=== PATIENT | female | born 1985 | race Caucasian/White ===

== ENCOUNTER 2018-08-15 11:02 | Inpatient (IN) | payer OTHER ==
[~2018-08-15] VITALS: Ht 157.5 cm; Wt 77.8 kg
[~2018-08-15 11:02] MED LIST: PHENYLephrine (100 MCG/ML) 10ML SYG ONE
[2018-08-15 11:21] VITALS: Ht 157.5 cm; Wt 77.8 kg
[2018-08-15 11:22] VITALS: BP 118/73; PULSE 88; RESP 16
[2018-08-15] MEDS ORDERED: MISOPROSTOL 200 MCG TAB PR PRN ×2 (11:30→17:00)
[2018-08-15] MEDS ORDERED: OXYTOCIN 30 UNITS/LR 500 ML IV SCH ×2 (11:30→16:35)
[2018-08-15] MEDS ORDERED: METHYLERGONOVINE 0.2 MG INJ IM PRN ×2 (11:30→17:00)
[2018-08-15] MEDS ORDERED: OXYTOCIN 30 UNITS/LR 500 ML IV PRN ×2 (11:30→17:00)
[2018-08-15] MEDS ORDERED: CEFAZOLIN 2 GM/50 ML (PMX) 50 ML IVPB SCH (11:30)
[2018-08-15] MEDS ORDERED: CARBOPROST 250 MCG INJ IM PRN ×2 (11:30→17:00)
[2018-08-15] MEDS: LACTATED RINGER'S 1,000 ML IV SCH ×2 (11:31→19:16)
--- NOTE | 2018-08-15 12:02 | HP ---
Date/Time of Note Date/Time of Note DATE: 08/15/18 TIME: 11:57 OB - History Hx of Present Chief Complaint: scheduled Estimated Due Date: Aug 22, 2018 : 2 Para: 1 Spontaneous : 0 Therapeutic : 0 Care: Good Care Ultrasounds: Normal mid trimester US Obstetrical Complications: None Medical Complications: None Past Family/Social History * Past Medical, Surgical, Family and Obstetric Histories reviewed from chart. GBS Status: Negative OB Admission Exam Vital Signs Vital Signs Vital Signs Date Temp Pulse Resp B/P (MAP) Pulse Ox O2 O2 Flow FiO2 Time Delivery Rate 08/15/18 98.1 88 16 118/73 11:22 (88) Physical Exam HEENT: WNL Heart: Rhythm Normal Lungs: Clear, Equal Abdomen: WNL Extremities: Normal Reflexes: Normal Heart Rate: 120's Accelerations: Accelerations Present Decelerations: No Decelerations Varibility: Moderate Last 72 hours Lab Results CBC & BMP 08/15/18 11:38 OB Assessment/Plan Reason for admission: section Plan: Section JESSA ALVES MD Aug 15, 2018 12:02
[2018-08-15] MEDS ORDERED: morphine SULFATE/PF (10 MG/10 ML) INJ ONE (12:38)
--- NOTE | 2018-08-15 12:38 | PREAC ---
Date/Time of Note Date/Time of Note DATE: 08/15/18 TIME: 12:37 Anesthesia Eval and Record Evaluation Time Pre-Procedure Interview DATE: 08/15/18 TIME: 12:37 Age 33 Sex female NPO: 8 hrs Preoperative diagnosis Repeat Planned procedure Past Medical History Past Medical History: Includes : : (2), Para: (1), Gestational age: (41) Surgery & Anesthesia Issues No known issue Meds Anticoagulation: No Beta Tay within 24 hr: No Reason Beta Tay not given: Pt. not on B-Tay Current Medications Lactated Ringer's 1,000 ml @ 125 mls/hr Q8H IV Last administered on 08/15/18at 11:31; Admin Dose 125 MLS/HR; Start 08/15/18 at 11:16 Cefazolin Sodium/ Dextrose 50 ml @ 100 mls/hr ONCE IVPB ; Start 08/15/18 at 11:30 Oxytocin/Lactated Ringer's 500 ml @ 125 mls/hr POST IV ; Start 08/15/18 at 11:30 Oxytocin/Lactated Ringer's 500 ml @ 0 mls/hr ONCE PRN IV VAGINAL BLEEDING; Start 08/15/18 at 11:30 Methylergonovine Maleate (Methergine) 0.2 mg ONCE PRN IM VAGINAL BLEEDING; Start 08/15/18 at 11:30 Carboprost Tromethamine (Hemabate) 250 mcg ONCE PRN IM VAGINAL BLEEDING; Start 08/15/18 at 11:30 Misoprostol (Cytotec) 1,000 mcg ONCE PRN [place] VAGINAL BLEEDING; Start 08/15/18 at 11:30 Meds reviewed: Yes Allergies Coded Allergies: No Known Allergies (Unverified Allergy, Unknown, 05/24/15) Allergies Reviewed: Yes Labs/Studies Labs Reviewed: Reviewed by anesthesiologist Result Diagram: 08/15/18 1138 Laboratory Tests 08/15/18 11:38 test: Positive Studies: ECG (n/a), CXR (n/a) Pre-procedure Exam Last vitals Vital Signs Date Temp Pulse Resp B/P (MAP) Pulse Ox O2 O2 Flow FiO2 Time Delivery Rate 08/15/18 98.1 88 16 118/73 11:22 (88) Airway: Adequate mouth opening, Adequate thyromental dist Mallampati: Mallampati II Teeth: Normal Lung: Normal Heart: Normal ASA Physical Status ASA physical status: 2 Emergency: None Planned Anesthetic Neuraxial: Spinal Planned Pain Management Sub-arachniod narcotics, Parenteral pain med Pre-operative Attestations Prior to commencing anesthesia and surgery, the patient was re-evaluated, there was verification of: *The patient's identity *The results of appropriate recent lab work and preoperative vital signs *The above evaluation not changing prior to induction *Anesthetic plan, risk benefits, alternative and complications discussed with patient/family; questions answered; patient/family understands, accepts and wishes to proceed. YUNI NAVARRO MD Aug 15, 2018 12:38
[2018-08-15] MEDS ORDERED: OXYTOCIN 10 UNIT INJ ONE (12:39)
[2018-08-15] MEDS ORDERED: ONDANSETRON 4 MG INJ ONE (12:51)
[2018-08-15] MEDS ORDERED: KETOROLAC 30 MG INJ ONE (12:51)
[2018-08-15] MEDS ORDERED: DEXAMETHASONE 4 MG/ML 1 ML INJ ONE (12:51)
[2018-08-15] MEDS ORDERED: METOCLOPRAMIDE 10 MG INJ ONE (12:51)
[2018-08-15] MEDS ORDERED: morphine 2 MG INJ IV PRN (13:30)
[2018-08-15] MEDS ORDERED: ONDANSETRON 4 MG INJ IV PRN ×2 (13:30)
[2018-08-15] MEDS ORDERED: FENTAnyl 50 MCG/ML VIAL IV PRN ×2 (13:30)
[2018-08-15] MEDS ORDERED: EPHEDrine SULFATE 50 MG/5 ML SYG IV PRN (13:30)
[2018-08-15] MEDS ORDERED: NALBUPHINE HCL (10 MG/1 ML) INJ IV PRN (13:30)
[2018-08-15] MEDS ORDERED: MEPERIDINE 25 MG INJ IV PRN (13:30)
[2018-08-15] MEDS ORDERED: ALBUMIN HUMAN 5% 250 ML IV PRN (13:30)
[2018-08-15] MEDS ORDERED: NALOXONE (0.4 MG/ML) INJ IV PRN (13:30)
[2018-08-15] MEDS ORDERED: DIPHENHYDRAMINE 50 MG INJ IV PRN ×2 (13:30)
[2018-08-15] MEDS ORDERED: HYDROmorphONE 1 MG/5 ML IV SYRINGE IV PRN ×2 (13:30)
[2018-08-15] MEDS ORDERED: HYDROmorphONE 0.5 MG/0.5 ML SYG IV PRN ×2 (13:30)
[2018-08-15] MEDS ORDERED: ACETAMINOPHEN 500 MG TAB PO PRN (13:30)
[2018-08-15] MEDS ORDERED: METOCLOPRAMIDE 10 MG INJ IV PRN (13:30)
[2018-08-15] MEDS ORDERED: HYDROCODONE/APAP (5/325) TAB PO PRN (13:30)
[2018-08-15] MEDS ORDERED: OXYCODONE/ACETAMINOPHEN (5/325) TAB PO PRN ×2 (13:30→17:00)
--- NOTE | 2018-08-15 13:52 | OPR ---
Operative Report Planned Procedure Procedure date Aug 15, 2018 Procedure(s) Repeat low transverse Performed by Jessa Alves MD Juvenile Officer: JUN JACOBO M.D. Anesthesiologist: YUNI NAVARRO MD Pre-procedure diagnosis 39 weeks with previous [id number] Anesthesia Type: Wwspk8v spinal Post-Procedure Post-procedure diagnosis Same Findings Live Baby, Apgars 9 and 9 Estimated Blood Loss: other (600 ml) Specimen(s) placenta Grafts/Implant(s) none Complication(s) none Pt Condition post procedure: stable Disposition: PACU Procedure Description After spinal anesthesia had been dosed and tested, the patient was placed supine on the Operating Room table and prepped and draped in the usual sterile fashion for a section. A Pfannenstiel incision was made through the abdomen and carried down to the level of the fascia. The fascia was incised transversely and then the rectus muscle was dissected off the fascia and split bluntly in the midline. The peritoneum was the entered bluntly. The bladder flap was created and then a low segment transverse incision was made with a knife on the uterus until the amniotic fluid was encountered. The incision was widened with bandage scissors. A hand was inserted elevating the vertex and then the head delivered with assistance of fundal pressure.. The nares and oropharynx were bulb suctioned, and the remainder of the infant was delivered out of the maternal abdomen. . The cord was doubly clamped and cut, and the infant handed off to the awaiting resuscitation team who was present for delivery. The placenta was then manually extracted and the interior uterus was cleaned with a dry lap sponge. The uterus was exteriorized, and the incision of the uterus closed with a running interlocking stitch of Monocryl suture. The uterus was replaced in the maternal abdomen. The abdomen was cleared of clots. The fascia was closed with a running suture of #1 Vicryl suture meeting in the midline. The subcutaneous tissue was made hemostatic with Bovie cautery, and the skin approximated using aggie. The patient tolerated the procedure well. All sponge and instrument counts were correct. She was taken to the recovery room in stable condition. JESSA ALVES MD Aug 15, 2018 13:52
--- NOTE | 2018-08-15 14:24 | PAC ---
Date/Time of Note Date/Time of Note DATE: 08/15/18 TIME: 14:24 Post-Anesthesia Notes Post-Anesthesia Note Last documented vital signs Vital Signs Date Temp Pulse Resp B/P (MAP) Pulse Ox O2 O2 Flow FiO2 Time Delivery Rate 08/15/18 98.1 88 16 118/73 94 NC 3 L 14:22 (88) Activity: WNL Respiratory function: WNL Cardiovascular function: WNL Mental status: Baseline Pain reasonably controlled: Yes Hydration appropriate: Yes Nausea/Vomiting absent: Yes YUNI NAVARRO MD Aug 15, 2018 14:24
[2018-08-15 16:00] VITALS: BP 110/58; PULSE 77; RESP 18
[2018-08-15] MEDS ORDERED: LACTATED RINGER'S 1,000 ML IV SCH (16:35)
[2018-08-15 16:58] VITALS: BP 97/53; PULSE 75; RESP 18
[2018-08-15] MEDS ORDERED: LANOLIN HPA 1 PKT TOP PRN (17:00)
--- NOTE | 2018-08-15 18:00 | NUR ---
EOSS. PT, IS IN STABLE CONDITION FUNDUS FIRM NORMAL BLEEDING . NO COMPLAINED OF PAIN OR ANY PROBLM UNDER OBSERVATION .
[2018-08-15 19:40] VITALS: BP 101/50; PULSE 85; RESP 18
[2018-08-15] MEDS: SENNA/DOCUSATE NA (8.6MG/50MG) TAB PO SCH (21:25)
[2018-08-16 00:10] VITALS: BP 92/50; PULSE 86; RESP 19
[2018-08-16] MEDS: LACTATED RINGER'S 1,000 ML IV SCH ×3 (03:16→23:08)
[2018-08-16 04:15] VITALS: BP 92/54; PULSE 79; RESP 19
[2018-08-16] MEDS: KETOROLAC 30 MG INJ IV PRN ×2 (04:23→12:11)
--- NOTE | 2018-08-16 04:25 | NUR ---
Discussed with pt regarding benefits of early ambulation. Pt verbalized understanding and agreed to get OOB to chair. Mercedes care done. Scant lochia noted. Pt assisted OOB to a chair. Pt tolerated ambulation. Instructed pt to call nurse for assistance getting back to bed. Pt verbalized understanding of instruction. Phone within easy reach.
--- NOTE | 2018-08-16 06:55 | NUR ---
Assisted pt back to bed. No c/o dizziness. SCD applied to both legs
--- NOTE | 2018-08-16 07:05 | NUR ---
EOSS: Pt in stable condition. Pereira and IV remain in place. Tolerating PO fluids. Bonding well with baby. OOB to a chair with assist. Pt tolerated ambulation. Pain controlled with Toradol 30 mg IV.
[2018-08-16 08:30] VITALS: BP 95/55; PULSE 72; RESP 18
[2018-08-16] MEDS: SENNA/DOCUSATE NA (8.6MG/50MG) TAB PO SCH ×2 (09:55→21:33)
--- NOTE | 2018-08-16 10:03 | QN ---
Documentation Comment No complaint Afebrile VSS Abdomen soft ND POD #1 Stable Ambulate Advance diet. JESSA ALVES MD Aug 16, 2018 10:03
--- NOTE | 2018-08-16 13:30 | NUR ---
LR IV fluids discontinued and IV saline locked. Pereira removed from patient. Patient tolerated well. Patient up to void post removal.
[2018-08-16] MEDS: IBUPROFEN 800 MG TAB PO SCH ×2 (14:00→21:34)
[2018-08-16] MEDS: OXYCODONE/ACETAMINOPHEN (5/325) TAB PO PRN (17:53)
--- NOTE | 2018-08-16 17:53 | NUR ---
Medicated PRN for pain score 6 with Percocet. Will reassess effectiveness in 1/2 hour
--- NOTE | 2018-08-16 18:00 | NUR ---
IV catheter removed from L wrist. Catheter tip intact. Patient tolerated well
--- NOTE | 2018-08-16 19:33 | NUR ---
EOSS CONDITION IS STABLE. HAS VOIDED ONCE. IV FLUIDS DISCONTINUED. UP AD LES IN ROOM. NO EXCESSIVE BLEEDING. BONDING WELL WITH MOM AND BABY
[2018-08-16 20:15] VITALS: BP 98/66; PULSE 84; RESP 17
[2018-08-17 04:50] VITALS: BP 118/57; PULSE 71; RESP 18
[2018-08-17] MEDS: LACTATED RINGER'S 1,000 ML IV SCH (05:11)
[2018-08-17] MEDS: IBUPROFEN 800 MG TAB PO SCH ×3 (05:32→22:23)
--- NOTE | 2018-08-17 06:12 | NUR ---
E.O.S.S. Patient in stable condition. VSS and systemic sounds wnl. Feeding baby every 2-3 hours or at least 8-12 hours per day. Bonding well with baby.
[2018-08-17 08:15] VITALS: BP 93/66; PULSE 86; RESP 18
[2018-08-17] MEDS: SENNA/DOCUSATE NA (8.6MG/50MG) TAB PO SCH ×2 (09:19→21:15)
[2018-08-17] MEDS: OXYCODONE/ACETAMINOPHEN (5/325) TAB PO PRN (09:20)
--- NOTE | 2018-08-17 11:12 | PN ---
Date/Time of Note Date/Time of Note DATE: 08/17/18 TIME: 11:11 OB Subjective Subjective Subjective Breast-feeding. Passed flatus. Denies any nausea and vomiting. Ambulating. Urinated. OB Objective Objective Objective General appearance: Alert and oriented x4 does not appear to be in any acute distress Abdomen: Soft, fundus firm and palpable below the umbilicus and nontender Incision: Clean dry and intact Breast: No evidence of mastitis or engorgement Extremities: No calf tenderness, no click no cord palpable CBC & BMP 08/15/18 11:38 08/16/18 05:57 OB Assessment/Plan Other Assessment: Status post repeat section doing well Routine postoperative care PB NEGRETE MD Aug 17, 2018 11:12
[2018-08-17 16:00] VITALS: BP 106/56; PULSE 102; RESP 18
--- NOTE | 2018-08-17 17:36 | NUR ---
EOSS: PATIENT IN STABLE CONDITION. BONDING WELL WITH HER BABY. DENIES PAIN AT THIS TIME. UP AND AMBULATING. PASSING GAS. AND BOTTLE FEEDING WELL.
[2018-08-17 20:10] VITALS: BP 99/59; PULSE 79; RESP 19
[2018-08-18 04:10] VITALS: BP 95/66; PULSE 73; RESP 18
--- NOTE | 2018-08-18 04:33 | NUR ---
EOSS: STABLE CONDITION. VOIDED, PASSING GAS. LOCHIA MINIMAL. BONDING WELL WITH BABY. MOVING TOWARDS GOALS.
[2018-08-18] MEDS: IBUPROFEN 800 MG TAB PO SCH ×2 (05:45→13:56)
[2018-08-18 07:50] VITALS: BP 104/58; PULSE 80; RESP 17
[2018-08-18] MEDS: SENNA/DOCUSATE NA (8.6MG/50MG) TAB PO SCH (08:21)
[2018-08-18] MEDS ORDERED: DIPHTH/TET/ACEL PERTUSS (ADULT) 0.5 ML VIAL IM* ONE (09:00)
--- NOTE | 2018-08-18 16:16 | DS ---
Date/Time of Note Date/Time of Note DATE: 08/18/18 TIME: 16:15 Obstetrical Discharge Record Final Diagnosis Final Diagnosis: Term delivered Section Section: Repeat Complications Augmentation: No Induction: No Rupture of Membranes: No Condition on Discharge Physical Assessment Last Vitals: vss a febrile Voiding: Yes Bowel Movement: Yes Breast: Soft, non-tender Fundus: Firm Abdomen and Incision: wound dry abdomen soft Episiotomy: n/a Calf Tenderness: No Patient Condition: Stable ARASELI WADSWORTH MD Aug 18, 2018 16:16
--- NOTE | 2018-08-18 16:18 | PD.PPDC ---
SENIOR PIPING DESIGNER Discharge Instruction Diagnosis [id number] Final Diagnosis: Mmpid8d s/p RC/S Condition [id number] Patient Condition: Qjtwi4n Stable Diet Vrtas2Hj Diet: Pmgig2x Resume Regular Diet Activity/Restrictions Jwehc1Zv Activity: Avsjl4q May Shower Vjpbb4Mv Restrictions: Fzybd7v No Exercising No Lifting Minimize Stair-climbing No Sexual Activity Nothing in the Vagina No Ammon No Tampons, douche Wound/Drain Care Instructions [id number] Wound/Drain Care Instructions: Hvabo1x Wash with soap and water Keep clean and dry Follow-up Follow-up with Physician: 2, Week/Weeks Return to clinic for Vwfam5Lm [employer] Instructions: Lpouv7c Fever greater than 101 Chills Worsening abdominal pain Excessive Vaginal Bleeding More than 2 pads per hour Unable to tolerate diet Kouod7Ps OB Instructions: Ygbks6z Breast Tenderness Depression Blurried Vision Headache Lqwql7Gp Surgical Instructions: Bwkgk9o Incisional Drainage Incisional Redness ARASELI WADSWORTH MD Aug 18, 2018 16:17
--- NOTE | 2018-08-18 17:31 | NUR ---
patient went home with the baby, both stable. d/c instructions given, verbalized understanding.
== END 2018-08-18 17:30 | disposition home or self-care (01) | DRG 788 ==
LOC: L-D 11:02 → PP1 16:03
PROVIDERS: ADMIT Obstetrics & Gynecology; ATTEND Obstetrics & Gynecology
PROC: 10D00Z1 Extraction of Products of Conception, Low, Open Approach (ICD-10-PCS; principal; 2018-08-15 12:30)
DX: O34.219 Maternal care for unspecified type scar from previous cesarean delivery (principal); Z3A.39 39 weeks gestation of pregnancy; Z37.0 Single live birth
CPT/HCPCS: 85025; 85610; 85730; 86592; 86850; 86900; 86901; 87340; 99464; J0690; J1100; J1885; J2274; J2370; J2405; J2590; J2765; J7120